=== PATIENT | male | born 1950 | race Caucasian/White ===

== ENCOUNTER 2018-03-13 09:46 | Inpatient (IN) | payer OTHER ==
[~2018-03-13] VITALS: Ht 177.8 cm; Wt 90.3 kg
[2018-03-14] MEDS ORDERED: ONDANSETRON ODT 4 MG TAB.RAPDIS SL PRN (01:45)
[2018-03-14] MEDS ORDERED: diphenhydrAMINE 50 MG CAPSULE PO PRN (01:45)
[2018-03-14] MEDS ORDERED: THIAMINE HCL 200 MG/2 ML VIAL IM ONE (01:45)
[2018-03-14] MEDS ORDERED: HYDROXYZINE PAMOATE 25 MG CAPSULE PO PRN (01:45)
[2018-03-14] MEDS ORDERED: LORAZEPAM 1 MG TABLET PO PRN (01:45)
[2018-03-14] MEDS ORDERED: ONDANSETRON 4 MG/2 ML VIAL IM PRN (01:45)
[2018-03-14] MEDS ORDERED: LORAZEPAM 2 MG/1 ML VIAL IM PRN (01:45)
[2018-03-14] MEDS ORDERED: MAG HYDROX/AL HYDROX/SIMETH 30 ML LIQUID UDC PO PRN (01:45)
[2018-03-14] MEDS ORDERED: MIRALAX 17 GM POWD.PACK PO PRN (01:45)
[2018-03-14] MEDS ORDERED: ACETAMINOPHEN 325 MG TABLET PO PRN (01:45)
[2018-03-14] MEDS ORDERED: IBUPROFEN 400 MG TABLET PO PRN (01:45)
[2018-03-14] MEDS ORDERED: LOPERAMIDE HCL 2 MG CAPSULE PO PRN ×2 (01:45)
[2018-03-14] MEDS ORDERED: MAGNESIUM HYDROXIDE 30 ML LIQUID UDC PO PRN (01:45)
[2018-03-14] MEDS ORDERED: DICYCLOMINE HCL 20 MG TABLET PO PRN (01:45)
--- NOTE | 2018-03-14 02:00 | NUR ---
Pre-assessment Note: Pt seen in intake office. Pt is AOx4 without s/s of acute distress. BP: 138/83, HR: 84, T: 98.0, RR: 20, SpO2: 95%, Pain: 0/10. Pt experiencing moderate anxiety and agitation. CIWA 9. Pt states he had a very long flight and is exhausted. Pt reports that he is being admitted for ETOH dependence. Policies and rules of the unit explained to pt. Pt verbalized understanding. Will continue assessment when pt arrives on floor.
[2018-03-14 02:20] VITALS: BP 138/83
--- NOTE | 2018-03-14 02:20 | NUR ---
Admission Note: Pt is 68M, admitted to [facility] at 0220 for ETOH withdrawal. Pt is experiencing moderate withdrawal symptoms at this time. Pt appears flushed, fidgety and disheveled. Pt reports agitation due to the long day he had from multiple flights. Pt is AOx4 and able to answer assessment questions. Pt states that his withdrawal symptoms include agitation, nervousness, irritability, emotional lability, tremulousness. Educated pt about signs and symptoms of withdrawal. Pt verbalized understanding. Pt denies hx of withdrawal-induced seizures. Substance use history,: 1. Pt drinks 1 bottle of Elvie daily for the past 35 years. Pt last drank 1 bottle on 01/10/18. Pt started drinking since he was 29 years old. Pt states that he is in treatment because he "needs to get rid of the effects of alcohol". Pt reiterated that he "wants to get rid of the pattern of drinking". Pt reports that this will be his first time in treatment. Pt's main motivation is for himself and his family. BP: 138/83, HR: 84, T: 98.0, RR: 20, SpO2: 95%, Pain: 0/10. CIWA 9. Respirations even and unlabored. Lung sounds clear bilaterally. Bowel sounds normoactive x4 quadrants. Blister noted on R foot 2nd digit. Pictures taken and placed in chart. Pt is 199lbs and is 5'10" tall. Pt follows a regular diet at home. Pt reported NKA. Pt wishes to be full code. Pt's primary physician is Dr. Satya Rosario from [facility]. Pt reports medical hx of HTN, knee osteoarthritis, Tinnitus, hx of CVA (2016), hx of shingles (2016), kidney stones, lipoma removal (2011), Bilateral achilles sx. Pt wears contacts for vision correction. Pt's home medications reconciled. Pt reports that he does not smoke cigarettes. Pt denies suicidal/homicidal ideation at this time. Bed in lowest position. Side rails up x2. Bed padded for safety. All needs attended and met. Call light functioning and within reach. Will continue to monitor.
[2018-03-14 02:39] LABS: BASOPHILS % (AUTO) 0.7 % (0.0-2.0); EOSINOPHILS # (AUTO) 0.2 K/uL (0.0-0.7); HEMATOCRIT 39.9 % (36.7-47.1); HEMOGLOBIN 14.1 g/dL (12.5-16.3); LYMPHOCYTES # (AUTO) 1.2 K/uL (20.0-40.0); LYMPHOCYTES % (AUTO) 19.7 % (20.5-51.5); MEAN CORPUSCULAR HEMOGLOBIN 33.3 uug (23.8-33.4); MEAN CORPUSCULAR HGB CONC 35 g/dL (32.5-36.3); MEAN CORPUSCULAR VOLUME 94.4 fL (73.0-96.2); MONOCYTES # (AUTO) 0.9 K/uL (2.0-10.0); MONOCYTES % (AUTO) 14.4 % (0.0-11.0); NEUTROPHILS # (AUTO) 3.9 K/uL (1.8-8.9); NEUTROPHILS % (AUTO) 62.2 % (38.5-71.5); PLATELET COUNT (AUTO) 202 K/uL (152-348); RED BLOOD CELL COUNT(AUTO) 4.23 MIL/uL (4.06-5.63); WHITE BLOOD COUNT (AUTO) 6.3 K/uL (3.6-10.2)
[2018-03-14 02:46] LABS: ETHANOL < 3 MG/DL (0-0)
[2018-03-14 02:49] LABS: ALANINE AMINOTRANSFERASE 24 U/L (16-63); ALKALINE PHOSPHATASE 52 U/L (50-136); AMYLASE 62 U/L (25-115); ASPARTATE AMINOTRANSFERASE 23 U/L (15-37); BILIRUBIN,TOTAL 0.6 mg/dL (0.2-1.0); CARBON DIOXIDE 31 mmol/L (21-32); CHLORIDE 100 mmol/L (98-107); CREATININE 1.4 mg/dL (0.6-1.3); GLUCOSE 105 mg/dL (74-106); LIPASE 257 U/L (73-393); POTASSIUM 3.1 mmol/L (3.5-5.1); TOTAL PROTEIN, SERUM 7.8 g/dL (6.4-8.2); UREA NITROGEN, BLOOD 34 mg/dL (7-18)
[2018-03-14 02:59] LABS: THYROID STIMULATING HORMONE 1.994 mIU/mL (0.358-3.740)
[2018-03-14] MEDS ORDERED: DICL100G16 TP (02:59)
[2018-03-14] MEDS ORDERED: DICL50TA7 PO (02:59)
[2018-03-14] MEDS ORDERED: OLME40TA18 PO (02:59)
[2018-03-14] MEDS ORDERED: TETR15DR97 OP (02:59)
[2018-03-14] MEDS ORDERED: TRIA15CR2 TP (02:59)
[2018-03-14] MEDS ORDERED: PEG15DRO8 OP (02:59)
[2018-03-14] MEDS ORDERED: RANI150T8 PO (02:59)
[2018-03-14] MEDS ORDERED: CHLO25TA2 PO (02:59)
[2018-03-14] MEDS ORDERED: ASPI-612 PO (02:59)
[2018-03-14 04:00] VITALS: BP 138/89
[2018-03-14] MEDS ORDERED: POTASSIUM CHLORIDE 20 MEQ TAB.PRT.SR PO ONE (04:00)
--- NOTE | 2018-03-14 04:00 | NUR ---
Addendum Note: Pt stated he took 2 tablets of Vicodin for a tooth operation "a couple of days ago". Pt reported that he does not currently take Vicodin regularly.
--- NOTE | 2018-03-14 05:45 | NUR ---
PRN Ativan: Pt noted with increased anxiety/agitation. Pt is hyperverbal and has racing thoughts. Pt states that he is usually like this when withdrawing. CIWA noted at 14. 2mg Ativan PRN given as ordered. Will continue to monitor.
[2018-03-14] MEDS: LORAZEPAM 1 MG TABLET PO PRN ×2 (05:48→10:19)
[2018-03-14 06:41] LABS: *AMPHETAMINE, URINE NEGATIVE (NEGATIVE); *BARBITURATE, URINE NEGATIVE (NEGATIVE); *CANNABINOID, URINE NEGATIVE (NEGATIVE); *COCCAINE, URINE NEGATIVE (NEGATIVE); *OPIATE, URINE NEGATIVE (NEGATIVE); *PHENCYCLIDINE SCREEN,URINE NEGATIVE (NEGATIVE)
--- NOTE | 2018-03-14 06:45 | NUR ---
PRN Ativan Reassessment: Pt stated he still feels the same. Remains with anxiety/agitation. CIWA at 14. Pt attempting to relax in bed. Pt stated that he wants to try and get some sleep for now. Will continue to monitor.
--- NOTE | 2018-03-14 07:01 | NUR ---
End of Shift Notes: Pt currently in bed with eyes closed. Pt slept for 1 hour. Pt c/o agitation/anxiety during shift. PRN 2mg Ativan given as ordered. Pts last CIWA was 14 at 0545. Pt is currently on PRN Ativan to manage withdrawal symptoms. Fall and Sz precautions observed. Bed in lowest position. Side rails up x2. Call light functioning and within reach. All needs attended and met. Will endorse to day shift nurse.
--- NOTE | 2018-03-14 07:25 | NUR ---
Start of Shift Note: Received patient in his room. Awake, alert and oriented x 4. Denies AV hallucinations. Denies any S/I or H/I noted. Patient states "I'm so anxious, my anxiety is off the ceiling and I have not slept at all. I had a long and rough day yesterday." He appears to be restless, agitated, restless, flushed, sweating with tremors noted to BUE. He keeps on moving both his feet while laying down in bed and reports parethesia. He verbalizes "It's like pins and needles." He is a 68 year old male admitted for ETOH withdrawal with taper need to be assessed in AM. Educated patient on the current plan of care for the day and his medication regimen. Encouraged oral fluid intake and encouraged group participation to learn new skills to prevent relapse. Per security shift supervisor report, patient only slept for 1 hour, Ativan 2 mg PO given for CIWA 14. Will continue to monitor closely.
[2018-03-14 08:00] VITALS: BP 132/78
[2018-03-14] MEDS: THIAMINE HCL 100 MG TABLET PO SCH (08:08)
[2018-03-14] MEDS: MULTIVITAMINS,THERAPEUTIC TABLET PO SCH (08:08)
[2018-03-14] MEDS: FOLIC ACID 1 MG TABLET PO SCH (08:08)
--- NOTE | 2018-03-14 08:10 | NUR ---
Ativan 2 mg PO given/MD Communication: JAY JAY GOYAL 20, patient presented with anxiety, agitation, tremors, sweating, paresthesia. He appears restless and agitated. Reassurance was provided. Medicated patient with Ativan 2 mg PO as ordered. Notified MD. Will continue to monitor the patient and for effectiveness of medication given. Addendum: 03/14/18 at 0818 by REY DELACRUZ LVN Denies S/I or H/I noted. No AV hallucinations. He appears flushed. Call light kept in reach. Safety precautions in place. Will continue to monitor.
--- NOTE | 2018-03-14 09:08 | NUR ---
Re-assessment: Ativan 2 mg CIWA 14, less anxiety, tremors and agitation noted. Skin warm and with barely sweats noticeable. Complains of very mild paresthesia. PRN Ativan 2 mg PO was effective. Seen by MD Barnes and per MD, he will enter in orders for the patient.
[2018-03-14] MEDS ORDERED: [UNRECOGNIZED DRUG - OTHER] PO PRN (09:45)
[2018-03-14] MEDS ORDERED: RANITIDINE 150 MG PO PRN (09:45)
[2018-03-14] MEDS: CHLORTHALIDONE 25 MG PO SCH (10:29)
[2018-03-14] MEDS: OLMESARTAN 40 MG PO SCH (10:29)
[2018-03-14] MEDS: [UNRECOGNIZED DRUG - OTHER] PO SCH (10:29)
[2018-03-14] MEDS: [UNRECOGNIZED DRUG - OTHER] PO SCH (10:29)
[2018-03-14] MEDS: ASPIRIN 325 MG PO SCH (10:30)
[2018-03-14] MEDS: [UNRECOGNIZED DRUG - OTHER] PO SCH (10:30)
[2018-03-14] MEDS ORDERED: PATIENT MAY USE OWN MED- MD OK EACHEYE PRN (11:00)
[2018-03-14] MEDS ORDERED: DICLOFENAC TOPICAL GEL TOP PRN (11:00)
[2018-03-14 12:00] VITALS: BP 145/94
[2018-03-14] MEDS: LORAZEPAM 1 MG TABLET PO SCH ×3 (12:08→21:49)
[2018-03-14] MEDS: CLONIDINE HCL 0.1 MG TABLET PO PRN (12:22)
--- NOTE | 2018-03-14 12:22 | NUR ---
Clonidine 0.1mg PO given: Patient's blood pressure 145/94, pulse 85. Denies chest pain, headache or dizziness. Denies any blurred vision. Medicated patient with Clonidine 0.1 mg PO given. Provided patient with a quiet and relaxing environment.
--- NOTE | 2018-03-14 13:22 | NUR ---
Re-assessment: Clonidine 0.1 mg Patient's BP 132/87, Pulse 70. Patient's is seen laying in bed. Eyes closed. Breathing even and unlabored. No SOB noted. PRN Clonidine 0.1mg PO was effective.
[2018-03-14 16:00] VITALS: BP 138/85
--- NOTE | 2018-03-14 19:12 | NUR ---
End of Shift Notes: Patient initiated his 5-day Ativan taper today to manage symptoms related to ETOH withdrawal. VS monitored closely. Has dx of HTN. Noted with elevated BP at 1222, medicated patient with Clonidine 0.1mg PO as ordered with help. Withdrawal symptoms were closely monitored. Initial CIWA 20, patient presented with fatigue, dyspepsia, difficulty concentrating, racing thoughts, anxiety, agitation, tremors, facial flushing, sweating. No S/I or AV hallucinations noted. Medicated patient with Ativan 2 mg PO as ordered at 0808 with help after 1 hour. Last CIWA 12 at 1600. Patient was unable to participate in group and activities due to his withdrawal symptoms. Able to tolerate PO intake well. He states that Ativan has been effective in reducing his withdrawal symptoms. All needs met and attended. Will continue to monitor closely.
--- NOTE | 2018-03-14 19:30 | NUR ---
Start of Shift Notes: Report received from day shift nurse. Per day shift nurse, last CIWA was 12 at 1654. Upon start of shift, pt was in room, in bed, with eyes closed. Respirations even and unlabored. Pt is AOx3, lung sounds clear bilaterally. No acute distress noted. Skin is warm and dry. Pt denies pain at this time. Pt is currently on 5-day Ativan taper to manage alcohol withdrawal symptoms. Bed in lowest position. Side rails up x2. Call light functioning and within reach. All needs attended and met. Will continue to monitor.
[2018-03-14 20:00] VITALS: BP 100/70
[2018-03-15] VITALS: BP 126/81
[2018-03-15 04:00] VITALS: BP 123/82
[2018-03-15 08:00] VITALS: BP 135/87
[2018-03-15 08:07] LABS: HEPATITIS B SURFACE AG Negative (Negative)
--- NOTE | 2018-03-15 08:10 | NUR ---
START OF SHIFT: RECEIVED PT A/O X 4 LAYING IN BED. HE PRESENTS WITH ANXIOUS MOOD AND GUARDED AFFECT. HE REPORTS ANXIETY,RESTLESSNESS,DEPRESSION AND IRRITABILITY. HE DENIES S/I AND H/I. HE IS FLUSHED AND TREMORS NOTED TO BUE. HE STATES HE SLEPT OK AND HIS APPETITE IS FAIR. ATIVAN TAPER TO MANAGE S/S OF W/D. CIWA 8.R KNEE PAIN REPORTED 6/10 ON PAIN SCALE . PRN DICLOFENAC ADMINISTERED ORDERED TO MANAGE PAIN. ENCOURAGED INCREASED FLUIDS TO ASSIST IN FACILITATING DETOX PROCESS.ENCOURAGED GROUP ATTENDANCE TO IMPROVE COPING SKILLS AND PREVENT RELAPSE. WILL CONTINUE TO MONITOR AND PROVIDE SAFE AND SUPPORTIVE ENVIRONMENT.
[2018-03-15] MEDS: LORAZEPAM 1 MG TABLET PO SCH ×3 (08:33→20:24)
[2018-03-15] MEDS: THIAMINE HCL 100 MG TABLET PO SCH (08:33)
[2018-03-15] MEDS: FOLIC ACID 1 MG TABLET PO SCH (08:34)
[2018-03-15] MEDS: MULTIVITAMINS,THERAPEUTIC TABLET PO SCH (08:34)
[2018-03-15] MEDS: ASPIRIN 325 MG PO SCH (08:35)
[2018-03-15] MEDS: [UNRECOGNIZED DRUG - OTHER] PO SCH (08:35)
[2018-03-15] MEDS: OLMESARTAN 40 MG PO SCH (08:35)
[2018-03-15] MEDS: [UNRECOGNIZED DRUG - OTHER] PO SCH (08:35)
[2018-03-15] MEDS: DICLOFENAC 50MG PO PRN (08:36)
[2018-03-15] MEDS: [UNRECOGNIZED DRUG - OTHER] PO SCH (08:36)
[2018-03-15] MEDS: CHLORTHALIDONE 25 MG PO SCH (08:36)
[2018-03-15] MEDS: TETRAHYDROZOLINE 0.05% OPHT DR 15 ML BOTTLE EACHEYE PRN (08:41)
[2018-03-15] MEDS ORDERED: TUBERCULIN,PURIF.PROT.DERIV. 5 TU/0.1 ML TEST ID ONE (09:00)
--- NOTE | 2018-03-15 09:15 | NUR ---
PRN DICLOFENAC EFFECTIVE. PAIN /
[2018-03-15] MEDS: ESCITALOPRAM OXALATE 10 MG TABLET PO SCH (10:55)
[2018-03-15 12:00] VITALS: BP 144/76
[2018-03-15 16:00] VITALS: BP 129/78
--- NOTE | 2018-03-15 19:03 | NUR ---
END OF SHIFT: PT CONTINUES ON ATIVAN TAPER TO MANAGE S/S OF W/D WHICH INCLUDE ANXIETY,DEPRESSION SWEATS,RESTLESSNESS,WEAKNESS AND IRRITABILITY.LAST CIWA 10. HE STATES DETOX MEDS ARE EFFECTIVE. HE ATTENDED GROUPS BUT SLEPT ON AND OFF MOST OF SHIFT. PPD PLANTED TO R FA. PRN DICLOFENAC GIVEN FOR R KNEE PAIN AND EFFECTIVE. WILL PASS SHIFT REPORT TO ONCOMING NIGHT NURSE.
--- NOTE | 2018-03-15 19:11 | NUR ---
Start of shift note Received report from day shift nurse. Pt is a 68 yo male, A+Ox4, presenting to [facility] for ETOH withdrawal. Pt noted to be agitated, anxious, restless, having sweats, chills, and tremors. Pt has HX of HTN and CVA which will be monitored during shift. Pt is on 5 day Ativan taper, tolerated well. Respirations even and unlabored. Will continue to monitor.
[2018-03-15] MEDS: GABAPENTIN 300 MG CAPSULE PO SCH (20:24)
[2018-03-15 20:53] VITALS: BP 131/74
[2018-03-16 00:28] VITALS: BP 123/68
[2018-03-16 04:38] VITALS: BP 119/71
--- NOTE | 2018-03-16 06:59 | NUR ---
End of shift note Pt was continuously noted with agitation, anxiety, and restlessness. Pt remained in room for majority of shift except to get food from kitchen. Pt was not given any PRN medications during shift. Pt is on 5 day Ativan taper, tolerated well. Pt slept for a total of 11 HRS. Last CIWA: 9 @0400. Respirations even and unlabored. Will endorse to day shift nurse.
--- NOTE | 2018-03-16 07:23 | NUR ---
Start of Shift Notes: Received patient in his room. Awake, alert and oriented x 4. Verbally responsive. Laying in bed, watching TV. Patient states "I'm getting better." However, he appears anxious m/b restlessness in bed. Redirected and reassurance provided. Patient is a 68 year old male admitted for ETOH withdrawal who was placed on a 5-day Ativan taper as ordered. No adverse reactions noted. Educated patient on his current plan of care for the day and his medication regimen. Encouraged oral fluid intake and encouraged group participation to learn new skills to prevent relapse. No PRNs given during the night. Last CIWA 9. Slept for 11 hours.
[2018-03-16 08:00] VITALS: BP 139/80
[2018-03-16] MEDS: [UNRECOGNIZED DRUG - OTHER] PO SCH (09:00)
[2018-03-16] MEDS: MULTIVITAMINS,THERAPEUTIC TABLET PO SCH (09:00)
[2018-03-16] MEDS: GABAPENTIN 300 MG CAPSULE PO SCH ×2 (09:00→20:35)
[2018-03-16] MEDS ORDERED: LORAZEPAM 1 MG TABLET PO SCH ×3 (09:00→21:00)
[2018-03-16] MEDS: THIAMINE HCL 100 MG TABLET PO SCH (09:00)
[2018-03-16] MEDS: ASPIRIN 325 MG PO SCH (09:00)
[2018-03-16] MEDS: FOLIC ACID 1 MG TABLET PO SCH (09:00)
[2018-03-16] MEDS: CHLORTHALIDONE 25 MG PO SCH (09:00)
[2018-03-16] MEDS: ESCITALOPRAM OXALATE 10 MG TABLET PO SCH (09:00)
[2018-03-16] MEDS: [UNRECOGNIZED DRUG - OTHER] PO SCH (09:00)
[2018-03-16] MEDS: [UNRECOGNIZED DRUG - OTHER] PO SCH (09:01)
[2018-03-16] MEDS: OLMESARTAN 40 MG PO SCH (09:01)
--- NOTE | 2018-03-16 09:03 | NUR ---
Diclofenac topical given: Patient complained of 5/10 pain to his right knee related to osteoarthritis. Medicated patient with Diclofenac topical as ordered. Will monitor for effectiveness.
--- NOTE | 2018-03-16 09:33 | NUR ---
Re-assessment: Diclofenac cream Patient verbalizes that Diclofenac cream was effective in reducing pain. PL 11/09.
[2018-03-16] MEDS: DICLOFENAC 50MG PO PRN (11:58)
--- NOTE | 2018-03-16 11:58 | NUR ---
Diclofenac 50 mg PO PRN given: Patient complained of 6/10 right knee pain related to OA. Heat packs provided but ineffective. Medicated patient with Diclofenac 50 mg PO as ordered. Will monitor for effectiveness.
[2018-03-16 12:00] VITALS: BP 132/77
--- NOTE | 2018-03-16 12:58 | NUR ---
Re-assessment: Diclofenac 50 mg PO Patient verbalizes relief from right knee pain. PL 11/09.
[2018-03-16 16:00] VITALS: BP 125/72
--- NOTE | 2018-03-16 19:08 | NUR ---
End of Shift Notes: Patient continues to be on 5-day Ativan taper today to manage symptoms related to ETOH withdrawal. VS monitored closely. No significant abnormalities noted. Withdrawal symptoms were closely monitored. Initial CIWA 14, patient presented with anxiety, agitation, tremors, facial flushing, sweating. No S/I or AV hallucinations noted.. Last CIWA 10 at 1600. Patient was able to participate in group and activities despite his withdrawal symptoms. Able to tolerate PO intake well. He states that Ativan has been effective in reducing his withdrawal symptoms. PRN Diclofenac gel and tablet given for arthritic pain with help. All needs met and attended. Will continue to monitor closely
--- NOTE | 2018-03-16 19:11 | NUR ---
Start of shift note Received report from day shift nurse. Pt is a 68 yo male, A+Ox4, presenting to [facility] for ETOH withdrawal. Pt noted with agitation, anxiety, restlessness, fine tremors, and sweats. Pt has HX of HTN, CVA, and bipolar disorder which will be monitored during shift. Pt is on 5 day Ativan taper, tolerated well. Respirations even and unlabored. Will continue to monitor.
[2018-03-16 20:10] VITALS: BP 108/72
[2018-03-17 00:05] VITALS: BP 112/73
[2018-03-17 04:12] VITALS: BP 108/68
[2018-03-17 06:26] LABS: CREATININE 1.2 mg/dL (0.6-1.3); MAGNESIUM 1.9 mg/dL (1.8-2.4); POTASSIUM 4.1 mmol/L (3.5-5.1)
--- NOTE | 2018-03-17 06:56 | NUR ---
End of shift note Pt was continuously noted to be agitated, anxious, restless, sweaty, having chills, and fine tremors. Pt remained in room for majority of shift except to get food from kitchen. Pt is on 5 day Ativan taper, tolerated well. Pt was not given any PRN medications during shift. Pt slept for a total of 9 HRS. Last CIWA: 8 @0400. Respirations even and unlabored. Will endorse to day shift nurse.
--- NOTE | 2018-03-17 07:00 | NUR ---
Start of Shift Notes: Received patient in his room. Awake, alert and oriented x 4. Verbally responsive. Laying in bed, watching TV. However, he appears anxious m/b restlessness in bed. Redirected and reassurance provided. Patient is a 68 year old male admitted for ETOH withdrawal who was placed on a 5-day Ativan taper as ordered. No adverse reactions noted. Educated patient on his current plan of care for the day and his medication regimen. Encouraged oral fluid intake and encouraged group participation to learn new skills to prevent relapse. No PRNs given during the night. Last CIWA . Slept for 9 hours.
[2018-03-17 08:00] VITALS: BP 133/78
[2018-03-17] MEDS: ASPIRIN 325 MG PO SCH (08:20)
[2018-03-17] MEDS: [UNRECOGNIZED DRUG - OTHER] PO SCH (08:20)
[2018-03-17] MEDS: OLMESARTAN 40 MG PO SCH (08:20)
[2018-03-17] MEDS: [UNRECOGNIZED DRUG - OTHER] PO SCH (08:20)
[2018-03-17] MEDS: ESCITALOPRAM OXALATE 10 MG TABLET PO SCH (08:21)
[2018-03-17] MEDS: LORAZEPAM 1 MG TABLET PO SCH ×3 (08:21→20:16)
[2018-03-17] MEDS: THIAMINE HCL 100 MG TABLET PO SCH (08:21)
[2018-03-17] MEDS: CHLORTHALIDONE 25 MG PO SCH (08:21)
[2018-03-17] MEDS: FOLIC ACID 1 MG TABLET PO SCH (08:21)
[2018-03-17] MEDS: MULTIVITAMINS,THERAPEUTIC TABLET PO SCH (08:21)
[2018-03-17] MEDS: [UNRECOGNIZED DRUG - OTHER] PO SCH (08:21)
[2018-03-17] MEDS: GABAPENTIN 300 MG CAPSULE PO SCH ×2 (08:21→20:16)
[2018-03-17] MEDS ORDERED: LORAZEPAM 1 MG TABLET PO SCH (09:00)
[2018-03-17] MEDS: DICLOFENAC 50MG PO PRN (09:12)
--- NOTE | 2018-03-17 09:12 | NUR ---
Diclofenac 50 mg PO PRN given: Patient complained of 7/10 right knee pain related to OA. Heat packs provided. Medicated patient with Diclofenac 50 mg PO as ordered. Will monitor for effectiveness.
--- NOTE | 2018-03-17 10:12 | NUR ---
Re-assessment: Diclofenac 50 mg PO Patient verbalizes relief from right knee pain. He states "It's a 11/09 now. Thank you." PRN Diclofenac was effective.
[2018-03-17 12:00] VITALS: BP 134/85
[2018-03-17 16:00] VITALS: BP 133/82
--- NOTE | 2018-03-17 19:09 | NUR ---
End of Shift Notes: Patient continues to be on 5-day Ativan taper today to manage symptoms related to ETOH withdrawal. VS monitored closely. No significant abnormalities noted. Withdrawal symptoms were closely monitored. Initial CIWA 14, patient presented with anxiety, agitation, tremors, facial flushing, sweating. No S/I or AV hallucinations noted. Last CIWA 8. Patient was able to participate in group and activities despite his withdrawal symptoms. Able to tolerate PO intake well. He states that Ativan has been effective in reducing his withdrawal symptoms. PRN Diclofenac tablet given for arthritic pain at 0912 with help. All needs met and attended. Will continue to monitor closely.
--- NOTE | 2018-03-17 19:12 | NUR ---
Start of shift note Received report from day shift nurse. Pt is a 68 yo male, A+Ox4, presenting to [facility] for ETOH withdrawal. Pt noted with fine tremors, agitation, anxiety, and restlessness. Pt has HX of HTN, Right knee osteoarthritis, CVA, and bipolar disorder which will be monitored during shift. Pt is on 5 day Ativan taper, tolerated well. Respirations even and unlabored. Will continue to monitor.
[2018-03-17 20:34] VITALS: BP 123/84
[2018-03-18 00:14] VITALS: BP 118/71
[2018-03-18 04:09] VITALS: BP 124/82
[2018-03-18] MEDS: DICLOFENAC 50MG PO PRN ×2 (05:35→20:16)
--- NOTE | 2018-03-18 05:37 | NUR ---
PRN Diclofenac Pt c/o right knee pain 05/09 and requested for PRN Diclofenac. Medication given and tolerated well. Will reassess within 1 HR. Will continue to monitor.
--- NOTE | 2018-03-18 06:31 | NUR ---
PRN Diclofenac Reassessment Medication effective. Pt expresses pain reduction to 4/10. No s/s of ASE noted at this time. Respirations even and unlabored. Will continue to monitor.
--- NOTE | 2018-03-18 07:00 | NUR ---
End of shift note Pt was continuously noted with fine tremors, anxiety, agitation, and restlessness. Pt remained in room for majority of shift except to get food from kitchen and to attend group in recreational room. Pt is on 5 day Ativan taper, tolerated well. Pt was given PRN Diclofenac @0537. Pt slept for a total of 9 HRS. Last CIWA: 9 @0400. Respirations even and unlabored. Will endorse to day shift nurse.
--- NOTE | 2018-03-18 07:40 | NUR ---
BEGINNING OF SHIFT Patient endorsement report received from material handler 2nd shift nurse, all pertinent information discussed. Patient is a 68 year old male with admitting Dx: Etoh withdrawal. Patient currently under close observation, patient currently with ongoing 5 day Ativan taper as ordered, well tolerated, patient currently to start day 5 of taper. Patients fall and seizure precautions in place and observed at all times. Patient received awake, alert and oriented x4. will monitor closely, will educated regarding plan of care for the day, and medication regimen. Patient received PRN: diclofenac during material handler 2nd shift. last ciwa score of: 9. patient slept 9 hours. will continue to monitor closely. safety measures in place.
[2018-03-18 08:19] VITALS: BP 129/84
[2018-03-18] MEDS ORDERED: LORAZEPAM 1 MG TABLET PO SCH (09:00)
[2018-03-18] MEDS: GABAPENTIN 300 MG CAPSULE PO SCH ×2 (09:11→20:16)
[2018-03-18] MEDS: FOLIC ACID 1 MG TABLET PO SCH (09:11)
[2018-03-18] MEDS: MULTIVITAMINS,THERAPEUTIC TABLET PO SCH (09:11)
[2018-03-18] MEDS: ESCITALOPRAM OXALATE 10 MG TABLET PO SCH (09:11)
[2018-03-18] MEDS: THIAMINE HCL 100 MG TABLET PO SCH (09:11)
[2018-03-18] MEDS: [UNRECOGNIZED DRUG - OTHER] PO SCH (09:19)
[2018-03-18] MEDS: CHLORTHALIDONE 25 MG PO SCH (09:19)
[2018-03-18] MEDS: ASPIRIN 325 MG PO SCH (09:20)
[2018-03-18] MEDS: [UNRECOGNIZED DRUG - OTHER] PO SCH (09:20)
[2018-03-18 13:20] VITALS: BP 118/77
[2018-03-18 17:08] VITALS: BP 142/86
[2018-03-18] MEDS ORDERED: ESCI10TA PO (17:55)
[2018-03-18] MEDS ORDERED: DIPH50CA37 PO (17:55)
[2018-03-18] MEDS ORDERED: GABA-534 PO (17:55)
[2018-03-18] MEDS ORDERED: CLON0.1T14 PO (17:55)
--- NOTE | 2018-03-18 19:00 | NUR ---
END OF SHIFT DON Patient monitored closely during shift. Patient alert and oriented x4. Admitting Dx: etoh withdrawal. Patient received last dose of 5 day Ativan taper, well tolerated, patient is scheduled to be discharged tomorrow morning, patient noted self motivated towards sobriety. Patient noted disheveled, with at times depressed, and anxious mood. BP monitored closely during shift. During shift patient tremors, anxiety, agitation, and sweats, initial ciwa score of : 9, last ciwa score of: 6. Received no PRN medications. Patient encouraged participation in therapy sessions, patient denies any SI/HI. Patient was encouraged to verbalize feelings, encouraged to develop coping skills and utilization of non pharmacological interventions. Encouraged patient to increase PO fluid intake as tolerated. Patients safety measures are in place. call light kept within reach, will continue to monitor. Endorsed to lieutenant shift supervisor nurse, all pertinent information discussed.
--- NOTE | 2018-03-18 19:30 | NUR ---
Start of Shift Pt is a 68 y/o male admitted 03/14/18 for medically managed withdrawal/detox from ETOH. Pt found laying in bed watching tv. Able to answer questions and respond to commands appropriately, A&O x 4. Hx of HTN, arthritis (with knee pain reported 5/10), CVA, and shingles. 1600 CIWA reported at 6. Evening meds reviewed with pt with pt requesting pain med for knee for sleep and Benedryl 50mg PO requested for insomnia. Will continue to monitor pt for shift, promptly attending to all pt needs.
[2018-03-18 20:00] VITALS: BP 123/70
--- NOTE | 2018-03-18 20:20 | NUR ---
PRN Meds Benedryl 50mg PO for insomnia and Diclofenac 50mg PO for knee pain requested by pt. Will continue to monitor for shift, reassessing pt in 1 hour, and promptly attending to all pt needs.
--- NOTE | 2018-03-18 21:20 | NUR ---
PRN Reassessment Benedryl 50mg PO and Diclofenac 50mg PO given 1 hour prior for insomnia and knee pain 03/09. At present pt sleeping. Meds effective. Will continue to monitor pt, promptly attending to all pt needs.
--- NOTE | 2018-03-19 | NUR ---
VS's CIWA Deferred Midnight VS's and CIWA deferred r/t pt sleeping/refused. RR 14, even and nonlabored. Will continue to monitor, promptly attending all pt needs
[2018-03-19 04:00] VITALS: BP 123/74
[2018-03-19] MEDS: TETRAHYDROZOLINE 0.05% OPHT DR 15 ML BOTTLE EACHEYE PRN (04:17)
[2018-03-19] MEDS: DICLOFENAC 50MG PO PRN ×2 (04:17→17:34)
--- NOTE | 2018-03-19 04:17 | NUR ---
PRN Meds Diclofenac 50mg PO for knee pain 4/10, and Opti-Tears 1drop/eye administered per pt request. Will continue to monitor pt, reassessing in 1 hour, and promptly attending to all pt needs.
--- NOTE | 2018-03-19 06:51 | NUR ---
End of Shift Pt is a 68 y/o male admitted 03/14/18 for medically managed withdrawal/detox from ETOH. PRN's for shift included Diclofenac 50mg PO for knee pain and Benedryl 50mg PO for insomnia at 20:20. Diclofenac 50mg PO was given again at 0417 and Opti-Tears 1drop/eye at 0417. Pt slept for 6 hours, arising about 4am,with 823 mls intake, 2 voids and 0 BM. Last CIWA was 5 at 04:00. Will continue to monitor pt until endorsement, promptly attending to all pt needs.
--- NOTE | 2018-03-19 07:50 | NUR ---
START OF SHIFT Rcvd endorse from ongoing nurse, client is in bed, a/o x 4. Client presents with depresses mood, flat affect, clammy skin, and fine tremors. Client reports anxiety, restlessness, chills, mild headache, decreased appetite, and fatigue. Client denies any nausea, vomiting or diarrhea. Encourage client to increase PO fluid as tolerated to facilitate detox. Encourage client to attend group therapy to learn skills to maintain sober. Last CIWA 5 @ 0400. PRN Benadryl 50mg PO for inability to sleep, client slept [address] Seizure precautions in place. Call light within reach.
[2018-03-19 08:06] VITALS: BP 111/66
[2018-03-19] MEDS: ESCITALOPRAM OXALATE 10 MG TABLET PO SCH (08:50)
[2018-03-19] MEDS: GABAPENTIN 300 MG CAPSULE PO SCH ×2 (08:51→21:09)
[2018-03-19] MEDS: MULTIVITAMINS,THERAPEUTIC TABLET PO SCH (08:51)
[2018-03-19] MEDS: FOLIC ACID 1 MG TABLET PO SCH (08:51)
[2018-03-19] MEDS: THIAMINE HCL 100 MG TABLET PO SCH (08:51)
[2018-03-19] MEDS: [UNRECOGNIZED DRUG - OTHER] PO SCH (08:52)
[2018-03-19] MEDS: ASPIRIN 325 MG PO SCH (08:52)
[2018-03-19] MEDS: [UNRECOGNIZED DRUG - OTHER] PO SCH (08:53)
[2018-03-19] MEDS: CHLORTHALIDONE 25 MG PO SCH (08:53)
[2018-03-19 12:00] VITALS: BP 129/89
[2018-03-19 16:52] VITALS: BP 144/85
[2018-03-19] MEDS: CLONIDINE HCL 0.1 MG TABLET PO PRN (16:56)
--- NOTE | 2018-03-19 16:56 | NUR ---
PRN Clonidine 0.1mg PO administered for increased BP 144/85. Call light within reach.
--- NOTE | 2018-03-19 17:34 | NUR ---
PRN Diclofenac 50mg PO administered for right knee pain 05/09. Will continue to monitor.
--- NOTE | 2018-03-19 17:56 | NUR ---
Reassess PRN Clonidine 0.1mg, BP 128/82. Call light within reach.
--- NOTE | 2018-03-19 18:34 | NUR ---
Reassess PRN Diclofenac 50mg, client reports relief from right knee pain 4/10, but tolerable. Will continue to monitor.
--- NOTE | 2018-03-19 19:10 | NUR ---
END OF SHIFT Endorse client to incoming nurse, client is in group therapy, he continuers to presents with depresses mood, flat affect, tremors felt not observed, and fatigue. Client denies any nausea, vomiting or diarrhea. Adequate PO fluid intake 2325mL, void x 2, stool x 1. Consumed 75 of meals. Client is schedule for discharge to [facility]. Last CIWA 5 @ 1600. PRN medications administered and noted per protocol. Seizure precautions in place. Call light within reach.
--- NOTE | 2018-03-19 19:30 | NUR ---
Start of Shift Pt is a 68 y/o male admitted 03/14/18 for medically managed withdrawal/detox from ETOH. Pt to be d/c'd in am to [facility] rehab facility in [place]. Pt found in room, in bed. Awake watching tv, pt is A&O x 4, able to answer questions and respond to commands appropriately. Room is tidy, patient groomed, pt asking questions about Gabapentin, denies depression and anxiety, denies also ever having had Shingles, but admits to getting vaccine. Pt scheduled for Neurontin 300mg PO for 2100 meds, no other requests, no c/o's pain or discomfort. Current CIWA 5 at 1600, assessed at 6 at present. Will continue to monitor pt for shift until giving endorsement, promptly attending to all pt needs.
[2018-03-19 20:00] VITALS: BP 106/66
--- NOTE | 2018-03-20 | NUR ---
VS's CIWA Deferred Midnight VS's, CIWA deferred r/t pt sleeping/refused. RR 14, even and nonlabored. Will continue to monitor, promptly attending to all pt needs.
[2018-03-20] MEDS: DICLOFENAC 50MG PO PRN ×2 (01:21→08:19)
--- NOTE | 2018-03-20 01:21 | NUR ---
PRN Med Diclofenac 50mg PO for r knee pain 02/07. Will continue to monitor pt, reassessing in 1 hour, promptly attending to all needs
--- NOTE | 2018-03-20 02:21 | NUR ---
PRN Reassessment Diclofenac 50mg PO given 1 hour prior for r knee pain. At moment, pt sleeping, RR 14, even and unlabored. Will continue to monitor and promptly attend to all pt needs.
--- NOTE | 2018-03-20 04:00 | NUR ---
VS's CIWA Deferred 0400 VS's, CIWA deferred r/t pt sleeping/refused. RR 14, even and nonlabored. Will continue to monitor, promptly attending to all pt needs.
--- NOTE | 2018-03-20 06:50 | NUR ---
End of Shift Pt is a 68 y/o male admitted 03/14/18 for medically managed withdrawal/detox from ETOH. PRN's for shift include: Diclofenac 50mg PO for r knee pain at 0121. Last CIWA was 6 at 1999. Pt slept for 7 hours, with 1000 mls input, 1 voids and 0 BM's. Will continue to monitor pt for shift until giving endorsement, promptly attending to all pt needs.
--- NOTE | 2018-03-20 07:30 | NUR ---
START OF SHIFT Received report from welder 2nd shift nurse. Pt is in his room getting ready for the day. He is a 68 yo male admitted to [facility] on 03/14 for ETOH withdrawal. He is A&O x4 and ambulatory. Pt completed a 5 day Ativan taper yesterday and is scheduled for discharge today. Pt reports dry eyes and mild anxiety regarding discharge. Provided support. Minimal other s/s of withdrawal noted. Safety measures in place.
[2018-03-20 08:00] VITALS: BP 123/78
[2018-03-20] MEDS: FOLIC ACID 1 MG TABLET PO SCH (08:13)
[2018-03-20] MEDS: ESCITALOPRAM OXALATE 10 MG TABLET PO SCH (08:14)
[2018-03-20] MEDS: [UNRECOGNIZED DRUG - OTHER] PO SCH (08:16)
[2018-03-20] MEDS: ASPIRIN 325 MG PO SCH (08:16)
[2018-03-20] MEDS: MULTIVITAMINS,THERAPEUTIC TABLET PO SCH (08:17)
[2018-03-20] MEDS: CHLORTHALIDONE 25 MG PO SCH (08:17)
[2018-03-20] MEDS: [UNRECOGNIZED DRUG - OTHER] PO SCH (08:17)
[2018-03-20] MEDS: THIAMINE HCL 100 MG TABLET PO SCH (08:18)
[2018-03-20] MEDS: TETRAHYDROZOLINE 0.05% OPHT DR 15 ML BOTTLE EACHEYE PRN (08:18)
--- NOTE | 2018-03-20 08:20 | NUR ---
PRN Diclofenac and Visine Pt reports dry eyes and right knee pain 6/10. PRN Diclofenac and Visine administered.
[2018-03-20] MEDS: GABAPENTIN 300 MG CAPSULE PO SCH (08:21)
--- NOTE | 2018-03-20 09:20 | NUR ---
PRN Visine and Diclofenac reassessment PRN Visine effective. Pt reports dry eyes are relieved. PRN Diclofenac effective. Pt's right knee pain is relieved.
--- NOTE | 2018-03-20 09:28 | NUR ---
DISCHARGE Pt is in stable condition. Vitals WNL and skin is intact. Pt is alert and oriented x4. Pt denies any SI/HI. All discharge paperwork completed, dated, and signed. Pt educated on discharge instructions, what to do after discharge, and s/s reportable to MD. Pt verbalized understanding. Last CIWA score 2. Pt was discharged from [facility] on 03/20/18 at 0928. Pt left the building with all belongings, prescriptions, and medications. MD aware of pt's discharge.
== END 2018-03-20 09:28 | disposition other institution (70) | DRG 895 ==
LOC: SRC 03-14 00:52
PROVIDERS: ADMIT Internal Medicine; ATTEND Internal Medicine
PROC: HZ2ZZZZ Detoxification Services for Substance Abuse Treatment (ICD-10-PCS; principal; 2018-03-14)
PROC: HZ41ZZZ Group Counseling for Substance Abuse Treatment, Behavioral (ICD-10-PCS; principal; 2018-03-14)
PROC: HZ31ZZZ Individual Counseling for Substance Abuse Treatment, Behavioral (ICD-10-PCS; 2018-03-15)
DX: F10.232 Alcohol dependence with withdrawal with perceptual disturbance (principal); N17.9 Acute kidney failure, unspecified; I15.9 Secondary hypertension, unspecified; F41.9 Anxiety disorder, unspecified; Y90.9 Presence of alcohol in blood, level not specified; Z91.89 Other specified personal risk factors, not elsewhere classified; M17.0 Bilateral primary osteoarthritis of knee; Z87.442 Personal history of urinary calculi; Z81.1 Family history of alcohol abuse and dependence; E86.0 Dehydration; E87.6 Hypokalemia; Z86.19 Personal history of other infectious and parasitic diseases; Z86.73 Personal history of transient ischemic attack (TIA), and cerebral infarction without residual deficits; F32.9 Major depressive disorder, single episode, unspecified; F11.10 Opioid abuse, uncomplicated; Z20.5 Contact with and (suspected) exposure to viral hepatitis
CPT/HCPCS: 36415; 70030-TC; 80307; 83690; 83735; 84443; 85025; 86580; 86592; 86705; 86803; 87340; 87806; A9150; G0480; J3411; Q0163